=== PATIENT | male | born 1945 | race Caucasian/White ===

== ENCOUNTER 2017-07-20 04:03 | Emergency (ER) | payer MEDICARE, OTHER, MEDICAID ==
[~2017-07-20] VITALS: Ht 177.8 cm; Wt 91.0 kg
[2017-07-20] MEDS ORDERED: MAGNESIUM/ALUMINUM HYDROXIDE/SIMETHICONE 30ML UDC PO STA (06:47)
[2017-07-20] MEDS ORDERED: PANTOPRAZOLE SODIUM 40 MG/VIAL IV STA (06:47)
[2017-07-20] MEDS ORDERED: SODIUM CHLORIDE 0.9% 500 ML IV ONE (06:47)
[2017-07-20 07:25] LABS: BASOPHILS % 0.3 % (0.0-2.0); EOSINOPHILS % 0.8 % (0.0-5.0); HEMATOCRIT. 42.7 % (42.0-52.0); HEMOGLOBIN. 14.9 g/dL (14.0-18.0); LYMPHOCYTES % 11.5 % (20.0-50.0); MEAN CORPUSCULAR HEMOGLOBIN 31.7 pg (28.0-32.0); MEAN CORPUSCULAR VOLUME 91.1 fL (80.0-94.0); MEAN PLATELET VOLUME 9.5 fl (7.4-10.4); MONOCYTES % 3.6 % (2.0-8.0); NEUTROPHILS % 83.8 % (40.0-76.0); PLATELET 155 x1000/uL (130-400); RED BLOOD CELL COUNT 4.69 mill/uL (4.7-6.1); RED CELL DISTRIBUTION WIDTH 13.3 % (11.6-14.6)
[2017-07-20 07:42] LABS: CHLORIDE 105 mEq/L (98-107); ETHANOL BLOOD < 10 mg/dL
[2017-07-20 09:24] VITALS: BP 148/79
== END 2017-07-20 09:20 | disposition home or self-care (01) ==
LOC: ER 04:03
DX: R53.1 Weakness (principal); R10.13 Epigastric pain; R11.2 Nausea with vomiting, unspecified; F41.0 Panic disorder [episodic paroxysmal anxiety]; R03.0 Elevated blood-pressure reading, without diagnosis of hypertension; R42 Dizziness and giddiness
CPT/HCPCS: 36415; 70450; 80053; 83605; 83690; 84484; 85025; 93005; 96361; 96374; 99285; C9113; G0482; J7040